=== PATIENT | female | born 1940 | race Caucasian/White ===

== ENCOUNTER 2021-03-09 20:25 | Emergency (ER) | payer OTHER ==
[~2021-03-09] VITALS: Ht 154.9 cm; Wt 61.2 kg
[2021-03-09] MEDS ORDERED: ENTRESTO 49 MG1 EACH (21:35)
[2021-03-09] MEDS ORDERED: METROTEXATE (21:36)
[2021-03-09] MEDS ORDERED: ACIDOPHILUS1 EAC3 (21:36)
[2021-03-09] MEDS ORDERED: ALDACTONE25 MG (21:37)
[2021-03-09] MEDS ORDERED: GLIPIZIDE XL5 MG (21:37)
[2021-03-09] MEDS ORDERED: CARVEDILOL ER40 MG (21:37)
[2021-03-09] MEDS ORDERED: DIGOX125 MCG (21:37)
[2021-03-09] MEDS ORDERED: MELOXICAM15 MG (21:38)
== END 2021-03-10 01:27 | disposition home or self-care (01) ==
LOC: ER 20:25
DX: G57.02 Lesion of sciatic nerve, left lower limb (principal); M47.897 Other spondylosis, lumbosacral region

== ENCOUNTER 2021-06-29 16:50 | Emergency (ER) | payer OTHER ==
[~2021-06-29] VITALS: Ht 154.9 cm; Wt 59.0 kg
[~2021-06-29 16:50] MED LIST: ACIDOPHILUS1 EAC3; ALDACTONE25 MG; CARVEDILOL ER40 MG; DIGOX125 MCG; ENTRESTO 49 MG1 EACH; GLIPIZIDE XL5 MG; MELOXICAM15 MG; METROTEXATE
[2021-06-29] MEDS ORDERED: ENTRESTO 49 MG1 EACH (17:16)
[2021-06-29] MEDS ORDERED: FOLIC ACID20 MG (17:16)
== END 2021-06-29 19:09 | disposition home or self-care (01) ==
LOC: ER 16:50
DX: M79.662 Pain in left lower leg (principal); M79.661 Pain in right lower leg

== ENCOUNTER 2021-08-12 15:07 | Emergency (ER) | payer OTHER ==
[~2021-08-12] VITALS: Ht 154.9 cm; Wt 63.5 kg
[~2021-08-12 15:07] MED LIST changes: +FOLIC ACID20 MG
== END 2021-08-12 21:53 | disposition home or self-care (01) ==
LOC: ER 15:07
DX: K29.60 Other gastritis without bleeding (principal); M17.11 Unilateral primary osteoarthritis, right knee; M25.561 Pain in right knee; G31.89 Other specified degenerative diseases of nervous system

== ENCOUNTER 2021-11-02 17:55 | Emergency (ER) | payer OTHER ==
[~2021-11-02] VITALS: Ht 154.9 cm; Wt 59.0 kg
[2021-11-03] MEDS ORDERED: CEPHALEXIN500 MG PO (06:56)
[2021-11-03] MEDS ORDERED: MECLIZINE HCL25 MG PO (06:56)
== END 2021-11-03 09:17 ==
LOC: ER 17:55
DX: R42 Dizziness and giddiness (principal); N39.0 Urinary tract infection, site not specified

== ENCOUNTER 2023-02-05 13:51 | Emergency (ER) | payer OTHER ==
[~2023-02-05] VITALS: Ht 152.4 cm; Wt 43.5 kg
[~2023-02-05 13:51] MED LIST changes: +CEPHALEXIN500 MG PO; +MECLIZINE HCL25 MG PO
== END 2023-02-05 18:17 | disposition home or self-care (01) ==
LOC: ER 13:51
DX: S09.8XXA Other specified injuries of head, initial encounter (principal); W19.XXXA Unspecified fall, initial encounter; Y93.9 Activity, unspecified; Y92.9 Unspecified place or not applicable; M19.90 Unspecified osteoarthritis, unspecified site; I10 Essential (primary) hypertension

== ENCOUNTER 2023-05-30 22:06 | Emergency (ER) | payer OTHER ==
[~2023-05-30] VITALS: Ht 160 cm; Wt 44.0 kg
== END 2023-05-31 04:13 ==
LOC: ER 22:06
PROVIDERS: Emergency Medicine
DX: R06.02 Shortness of breath (principal); I51.7 Cardiomegaly; E11.9 Type 2 diabetes mellitus without complications; Z79.84 Long term (current) use of oral hypoglycemic drugs; I10 Essential (primary) hypertension; I50.9 Heart failure, unspecified; Z20.822 Contact with and (suspected) exposure to COVID-19; Z95.0 Presence of cardiac pacemaker

== ENCOUNTER 2023-11-29 10:22 | Emergency (ER) | payer OTHER ==
[~2023-11-29] VITALS: Ht 152.4 cm; Wt 47.6 kg
[2023-11-29] MEDS ORDERED: METFORMIN HCL500 M3 (10:51)
[2023-11-29] MEDS ORDERED: ACETAMINOPHEN 325 MG TABLET PO STA (12:08)
[2023-11-29] MEDS ORDERED: 0.9 % SODIUM CHLORIDE 1,000 ML IV ONE (17:30)
[2023-11-29 18:41] LABS: HEMATOCRIT 36.9 % (36.0-45.00); MEAN CELL VOLUME 93.9 fL (80.00-100.00); MEAN CORPUSCULAR HEMOGLOBIN 33.1 pg (27.00-32.0); MEAN CORPUSCULAR HGB CONC 35.2 g/dl (32.0-36.0); PLATELET COUNT 229 K/uL (150-450); RED BLOOD COUNT 3.94 M/uL (4.00-6.00); RED CELL DISTRIBUTION WIDTH 14.7 % (11.5-14.5)
[2023-11-29 19:02] LABS: ALBUMIN 2.8 gm/dL (3.4-5.0); BILIRUBIN TOTAL 0.35 mg/dL (0.3-1.2); CALCIUM 9.5 mg/dL (8.5-10.1); CREATININE SERUM 1.05 mg/dL (0.55-1.02); GFR 49.93; GLOBULINA 4.8 G/DL (2.4-3.5); POTASSIUM 4.69 mEq/L (3.5-5.1); TOTAL PROTEIN 7.6 gm/dL (6.4-8.2)
[2023-11-29] MEDS ORDERED: ACETAMINOPHEN 500 MG GEL..CAP PO ONE (19:15)
[2023-11-29 22:41] LABS: ABG PH 7.435 (7.35-7.45); ABG pCO2 26.7 mmHg (35-45); BASE EXCESS -4.9 mmol/l; BICARBONATE 17.5 mmol/l (23-25); SaO2 97.7 %; Tco2 18.3 mmol/l
[2023-11-29 22:42] LABS: allen test SATISFACTORY; o2 28 %; puncture site RADIAL RIGHT
[2023-11-29] MEDS ORDERED: PIPERACILLIN/TAZOBACTAM SODIUM 3.375 GM VIAL IV ONE (23:30)
[2023-11-30] MEDS ORDERED: MORPHINE SULFATE 4 MG/ML VIAL IV STA (02:28)
[2023-11-30 06:11] LABS: HEMATOCRIT 34.1 % (36.0-45.00); HEMOGLOBIN 12.2 g/dL (12.0-15.00); MEAN CORPUSCULAR HEMOGLOBIN 34.1 pg (27.00-32.0); MEAN CORPUSCULAR HGB CONC 35.9 g/dl (32.0-36.0); PLATELET COUNT 185 K/uL (150-450); RED BLOOD COUNT 3.59 M/uL (4.00-6.00); RED CELL DISTRIBUTION WIDTH 14.6 % (11.5-14.5)
[2023-11-30 06:36] LABS: ALBUMIN 2.5 gm/dL (3.4-5.0); BILIRUBIN TOTAL 1.02 mg/dL (0.3-1.2); CREATININE SERUM 0.76 mg/dL (0.55-1.02); GFR 72.5; GLOBULINA 3.7 G/DL (2.4-3.5); POTASSIUM 4.32 mEq/L (3.5-5.1); TOTAL PROTEIN 6.2 gm/dL (6.4-8.2)
== END 2023-11-30 08:22 | disposition home or self-care (01) ==
LOC: ER 10:23
PROVIDERS: Emergency Medicine
DX: S22.42XA Multiple fractures of ribs, left side, initial encounter for closed fracture (principal); W18.39XA Other fall on same level, initial encounter; Y93.F1 Activity, caregiving, bathing; Y92.012 Bathroom of single-family (private) house as the place of occurrence of the external cause; M81.8 Other osteoporosis without current pathological fracture; Z95.0 Presence of cardiac pacemaker; E11.9 Type 2 diabetes mellitus without complications; Z79.84 Long term (current) use of oral hypoglycemic drugs; I11.0 Hypertensive heart disease with heart failure; S27.0XXA Traumatic pneumothorax, initial encounter; K57.30 Diverticulosis of large intestine without perforation or abscess without bleeding
CPT/HCPCS: 36415; 70450; 71110; 71250; 72125; 73551; 74177; 82803; 93005; 96365; 96366; 99284; J2270; J2543; J7030; Q9965

== ENCOUNTER 2024-05-10 16:19 | Emergency (ER) | payer OTHER ==
[~2024-05-10] VITALS: Ht 154.9 cm; Wt 56.7 kg
[~2024-05-10 16:19] MED LIST changes: +METFORMIN HCL500 M3
== END 2024-05-10 16:57 | disposition home or self-care (01) ==
LOC: ER 16:20
DX: R05.8 Other specified cough (principal); Z88.6 Allergy status to analgesic agent